=== PATIENT | male | born 1940 | race Caucasian/White ===

== ENCOUNTER 2017-02-17 17:15 | Inpatient (IN) | payer MEDICARE, BC, OTHER ==
[~2017-02-17 17:15] MED LIST: ACETIC ACID-ALU60 ML OT; ALBUTEROL SULF8.5 G1 INH; ALLEGRA ALLERG180 MG PO; ALLERGY EYE DRO10 ML OP; ALLERGY10 M3 PO; ASPIR-TRIN325 M2 PO; ATROVENT 0.03%30 ML NS; AUGMENTIN 875-1 EAC1 PO; AUGMENTIN 875-1 EAC2 PO; BACTERICIN14.2 GM TP; BASLE60 GM TP; BLOOD PRESSURE MED; CALCIUM + VITA1 EAC4 PO; CLARITIN10 M5 PO; CLARITIN10 M6 PO; DOXYCYCLINE HY100 M3 PO; EPIPEN 2-P0.3 MG/0.3 IJ; EPIPEN0.3 MG/0.1 IM; EUCERIN CREME120 GM TP; FEXOFENADINE H180 M1 PO; FLUNISOLIDE25 M3; FUROSEMIDE20 M1 PO; GNP CALCIUM PO; IPRATROPIUM BRO30 M1; LASIX40 MG PO; LISINOPRIL40 M1 PO; LODINE400 MG PO; MUCINEX600 M1 PO; NORCO 5-325 TA1 EACH PO; NORCO 5/3251 TAB PO; NORVASC5 M1 PO; OMEGA 3 FISH O1 EACH PO; OMEGA 31 CAP PO; PREDNISONE10 M1 PO; PREDNISONE20 M1 PO; PROAIR HFA8.5 GM INH; SPIRIVA18 MC1 IH; SPIRIVA18 MCG IH; SYMBICORT 160-1 PUFF INH; SYMBICORT 160-4.6 GM INH; TRIAMCINOLONE A15 G2 TP; VIGAMOX3 M1 OP; ZADITOR5 M2 OP; ZESTRIL40 MG PO; ZYLOPRIM300 MG PO
[2017-02-17] MEDS ORDERED: ALLOPURINOL300 M1 PO (17:18)
[2017-02-17] MEDS ORDERED: ALBUTEROL0.63 MG/1 INH (17:19)
[2017-02-17] MEDS ORDERED: GUAIFENESIN400 M1 PO (17:21)
[2017-02-17] MEDS ORDERED: TEARS AGAIN EACH EYE (18:06)
[2017-02-17] MEDS ORDERED: ASPIRIN EC81 MG PO (18:06)
[2017-02-17] MEDS ORDERED: KETOTIFEN FUMARA5 M1 EACH EYE (18:07)
[2017-02-17] MEDS ORDERED: VENTOLIN HFA18 G2 INH (18:09)
[2017-02-17] MEDS ORDERED: SPIRIVA18 MC1 INH (18:11)
[2017-02-17 21:05] LABS: BASO % 0.4 % (0-2); EOS % 1.6 % (0-7); EOSINOPHIL ABSOLUTE COUNT 0.1 tho/cmm (0.0-0.7); HCT-HEMATOCRIT 54.8 % (36.0-53.5); HGB-HEMOGLOBIN 16.4 gm/dl (13.5-17.0); IMMATURE GRANULOCYTES ABSOLUTE 0.02 tho/cmm (0-0.03); IMMATURE GRANULOCYTES PERCENT 0.2 % (0-0.3); LYMPH % 13.8 % (20-45); LYMPH ABSOLUTE COUNT 1.2 tho/cmm (0.8-4.5); MCH (MEAN CORPUSCULAR HGB) 28.3 pg (28.0-32.0); MCHC MEAN CORPUSCULAR HGB CONC 29.9 % (32.0-36.0); MCV (MEAN CELL VOLUME) 94.5 fl (82.0-96.0); MONO % 6.7 % (0-12); MONOCYTE ABSOLUTE COUNT 0.6 tho/cmm (0.0-1.2); NEUTROPHIL ABSOLUTE COUNT 6.9 tho/cmm (1.6-8.0); NEUTROPHIL-AUTOMATED 6.9 tho/cmm (1.6-8.0); NEUTROPHILS % 77.3 % (40-80); PLATELET COUNT 202 tho/cmm (150-450); RED CELL DISTRIBUTION WIDTH 15.8 % (12.4-16.4); WHITE BLOOD COUNT 8.9 tho/cmm (4.0-10.0)
[2017-02-17 21:07] LABS: ABG CO2 ARTERIAL 33 mmol/L (21-27); ARTERIAL BLD GAS O2 SATURATION 95 % (95-98); ARTERIAL PO2 93 mmHg (70-100); BICARBONATE 31 mmol/L (21-28); BLOOD GAS BASE EXCESS -1 mM/L (-/+3)
[2017-02-17 21:08] LABS: ARTERIAL BLOOD GAS PCO2 84 mmHg (32-45); PH 7.19 Units (7.35-7.45)
[2017-02-17 21:22] LABS: ANION GAP 11 mmol/L (0-20); BLOOD UREA NITROGEN 80 mg/dl (6-24); CALCIUM 8.5 mg/dl (8.5-10.5); CARBON DIOXIDE-VENOUS 31 mmol/L (22-32); CHLORIDE 106 mmol/l (96-110); CREATININE 2.03 mg/dl (0.60-1.30); GLUCOSE 98 mg/dL (70-110); SODIUM 142 mmol/L (135-145); eGFR VALUE FOR BLACK 36 mL/Min
[2017-02-18 00:14] LABS: ABG CO2 ARTERIAL 30 mmol/L (21-27); ARTERIAL BLD GAS O2 SATURATION 97 % (95-98); BICARBONATE 28 mmol/L (21-28); BLOOD GAS BASE EXCESS -3 mM/L (-/+3)
[2017-02-18 00:15] LABS: ARTERIAL PO2 108 mmHg (70-100)
[2017-02-18 00:19] LABS: ARTERIAL BLOOD GAS PCO2 74 mmHg (32-45)
[2017-02-18 04:43] LABS: ABG CO2 ARTERIAL 32 mmol/L (21-27); ARTERIAL BLD GAS O2 SATURATION 94 % (95-98); BICARBONATE 29 mmol/L (21-28); BLOOD GAS BASE EXCESS -1 mM/L (-/+3)
[2017-02-18 04:45] LABS: ARTERIAL PO2 83 mmHg (70-100)
[2017-02-18 04:47] LABS: ARTERIAL BLOOD GAS PCO2 78 mmHg (32-45)
[2017-02-18 05:18] LABS: BASO % 0.1 % (0-2); EOS % 0.3 % (0-7); HCT-HEMATOCRIT 53.5 % (36.0-53.5); HGB-HEMOGLOBIN 15.5 gm/dl (13.5-17.0); IMMATURE GRANULOCYTES ABSOLUTE 0.02 tho/cmm (0-0.03); IMMATURE GRANULOCYTES PERCENT 0.3 % (0-0.3); LYMPH % 3.4 % (20-45); LYMPH ABSOLUTE COUNT 0.3 tho/cmm (0.8-4.5); MCH (MEAN CORPUSCULAR HGB) 27.7 pg (28.0-32.0); MCV (MEAN CELL VOLUME) 95.5 fl (82.0-96.0); MEAN PLATELET VOLUME 11.1 cmc (9.4-12.4); MONO % 0.4 % (0-12); NEUTROPHIL ABSOLUTE COUNT 7.2 tho/cmm (1.6-8.0); NEUTROPHIL-AUTOMATED 7.2 tho/cmm (1.6-8.0); NEUTROPHILS % 95.5 % (40-80); PLATELET COUNT 194 tho/cmm (150-450); RED CELL DISTRIBUTION WIDTH 16.1 % (12.4-16.4); WHITE BLOOD COUNT 7.5 tho/cmm (4.0-10.0)
[2017-02-18 05:34] LABS: ANION GAP 11 mmol/L (0-20); BLOOD UREA NITROGEN 79 mg/dl (6-24); CALCIUM 8.3 mg/dl (8.5-10.5); CARBON DIOXIDE-VENOUS 30 mmol/L (22-32); CHLORIDE 106 mmol/l (96-110); CREATININE 1.72 mg/dl (0.60-1.30); GLUCOSE 146 mg/dL (70-110); POTASSIUM 5.5 mmol/L (3.7-5.1); SODIUM 141 mmol/L (135-145); eGFR VALUE FOR BLACK 44 mL/Min
[2017-02-18 06:12] LABS: ABG CO2 ARTERIAL 31 mmol/L (21-27); ARTERIAL BLD GAS O2 SATURATION 92 % (95-98); BICARBONATE 29 mmol/L (21-28); BLOOD GAS BASE EXCESS -1 mM/L (-/+3); PH 7.23 Units (7.35-7.45)
[2017-02-18 06:14] LABS: ARTERIAL PO2 70 mmHg (70-100)
[2017-02-18 06:16] LABS: ARTERIAL BLOOD GAS PCO2 73 mmHg (32-45)
[2017-02-18 14:33] LABS: PROCALCITONIN 0.11 ng/ml (0.05-0.09)
[2017-02-18 15:14] LABS: ABG CO2 ARTERIAL 31 mmol/L (21-27); ARTERIAL BLD GAS O2 SATURATION 95 % (95-98); ARTERIAL BLOOD GAS PCO2 55 mmHg (32-45); ARTERIAL PO2 75 mmHg (70-100); BICARBONATE 29 mmol/L (21-28); BLOOD GAS BASE EXCESS 2 mM/L (-/+3); PH 7.34 Units (7.35-7.45)
[2017-02-19 04:08] LABS: INR 1.3 INR (0.9-1.1); PROTHROMBIN TIME 15.4 SECONDS (9.0-13.6)
[2017-02-19 04:15] LABS: ANION GAP 12 mmol/L (0-20); BLOOD UREA NITROGEN 67 mg/dl (6-24); CALCIUM 8.3 mg/dl (8.5-10.5); CARBON DIOXIDE-VENOUS 31 mmol/L (22-32); CHLORIDE 104 mmol/l (96-110); CREATININE 1.59 mg/dl (0.60-1.30); GLUCOSE 151 mg/dL (70-110); POTASSIUM 4.5 mmol/L (3.7-5.1); SODIUM 142 mmol/L (135-145); eGFR VALUE FOR BLACK 48 mL/Min
[2017-02-19 04:47] LABS: ABG CO2 ARTERIAL 30 mmol/L (21-27); ARTERIAL BLD GAS O2 SATURATION 86 % (95-98); ARTERIAL BLOOD GAS PCO2 50 mmHg (32-45); BICARBONATE 29 mmol/L (21-28); BLOOD GAS BASE EXCESS 3 mM/L (-/+3); PH 7.38 Units (7.35-7.45)
[2017-02-19 04:48] LABS: ARTERIAL PO2 52 mmHg (70-100)
[2017-02-20 05:03] LABS: HCT-HEMATOCRIT 49.3 % (36.0-53.5); IMMATURE GRANULOCYTES ABSOLUTE 0.02 tho/cmm (0-0.03); IMMATURE GRANULOCYTES PERCENT 0.2 % (0-0.3); LYMPH % 4.9 % (20-45); LYMPH ABSOLUTE COUNT 0.5 tho/cmm (0.8-4.5); MCH (MEAN CORPUSCULAR HGB) 27.2 pg (28.0-32.0); MCHC MEAN CORPUSCULAR HGB CONC 30.4 % (32.0-36.0); MEAN PLATELET VOLUME 10.9 cmc (9.4-12.4); MONO % 1.2 % (0-12); MONOCYTE ABSOLUTE COUNT 0.1 tho/cmm (0.0-1.2); NEUTROPHIL ABSOLUTE COUNT 8.7 tho/cmm (1.6-8.0); NEUTROPHIL-AUTOMATED 8.7 tho/cmm (1.6-8.0); NEUTROPHILS % 93.7 % (40-80); PLATELET COUNT 178 tho/cmm (150-450); RED BLOOD COUNT 5.52 mil/cmm (4.40-5.70); RED CELL DISTRIBUTION WIDTH 15.7 % (12.4-16.4); WHITE BLOOD COUNT 9.3 tho/cmm (4.0-10.0)
[2017-02-20 05:09] LABS: MCV (MEAN CELL VOLUME) 89.3 fl (82.0-96.0)
[2017-02-20 05:15] LABS: ANION GAP 11 mmol/L (0-20); BLOOD UREA NITROGEN 54 mg/dl (6-24); CALCIUM 8.4 mg/dl (8.5-10.5); CARBON DIOXIDE-VENOUS 31 mmol/L (22-32); CHLORIDE 106 mmol/l (96-110); CREATININE 1.33 mg/dl (0.60-1.30); GLUCOSE 158 mg/dL (70-110); POTASSIUM 4.2 mmol/L (3.7-5.1); SODIUM 144 mmol/L (135-145); eGFR VALUE FOR BLACK 60 mL/Min
[2017-02-21 01:57] LABS: POTASSIUM 3.9 mmol/L (3.7-5.1)
[2017-02-21 09:00] LABS: INR 1.1 INR (0.9-1.1); PROTHROMBIN TIME 13.3 SECONDS (9.0-13.6)
[2017-02-21] MEDS ORDERED: PREDNISONE10 M1 PO (13:58)
== END 2017-02-21 14:35 | DRG 190 ==
LOC: 5WE 17:15 → PCUA 23:00
PROVIDERS: Internal Medicine; Internal Medicine Critical Care Medicine; Registered Nurse; ADMIT Internal Medicine
PROC: 5A09357 Assistance with Respiratory Ventilation, Less than 24 Consecutive Hours, Continuous Positive Airway Pressure (ICD-10-PCS; principal; 2017-02-17)
DX: J44.1 Chronic obstructive pulmonary disease with (acute) exacerbation (principal); J96.21 Acute and chronic respiratory failure with hypoxia; N17.9 Acute kidney failure, unspecified; Z99.81 Dependence on supplemental oxygen; R18.8 Other ascites; E66.01 Morbid (severe) obesity due to excess calories; N18.3 Chronic kidney disease, stage 3 (moderate); J96.22 Acute and chronic respiratory failure with hypercapnia; G47.33 Obstructive sleep apnea (adult) (pediatric); G47.10 Hypersomnia, unspecified; M19.90 Unspecified osteoarthritis, unspecified site; M10.9 Gout, unspecified; Z68.34 Body mass index [BMI] 34.0-34.9, adult; E78.5 Hyperlipidemia, unspecified; I12.9 Hypertensive chronic kidney disease with stage 1 through stage 4 chronic kidney disease, or unspecified chronic kidney disease; Z79.82 Long term (current) use of aspirin; Z91.030 Bee allergy status; Z91.013 Allergy to seafood; R60.0 Localized edema; Z87.891 Personal history of nicotine dependence; I87.2 Venous insufficiency (chronic) (peripheral); Z57.2 Occupational exposure to dust; Z51.5 Encounter for palliative care; F10.10 Alcohol abuse, uncomplicated; J44.0 Chronic obstructive pulmonary disease with (acute) lower respiratory infection; J20.9 Acute bronchitis, unspecified; K76.9 Liver disease, unspecified
CPT/HCPCS: J0456; J0610; J1650; J1940; J1956; J2930; J3430; J7030; J7050; J7512